=== PATIENT | female | born 1980 | race Caucasian/White ===

== ENCOUNTER 2024-10-17 11:01 | Day surgery (SDC) | payer OTHER ==
[2024-10-17] MEDS ORDERED: hydrALAZINE 20 MG/ML VIAL SLOW IVP PRN (12:24)
[2024-10-17 12:46] LABS: Glucose, Urine (Dipstick) Normal (Negative); Leukocyte Negative (Negative); Protein, Urine (Dipstick) Negative (Neg-Trace); Specific Gravity, Urine 1.010 (1.005-1.030)
[2024-10-17 13:20] LABS: Bacteria/HPF 1+ HPF (None Seen); CAUTI Indications for Culture Pregnancy; RBC/HPF 0-3 HPF (0-3); WBC/HPF 0-3 HPF (0-3)
[2024-10-17 13:22] LABS: Urine Culture Reflex Yes Yes
[2024-10-17 13:47] LABS: #Basophils 0.04 10x3/uL (0.0-0.2); #Eosinophils 0.12 10x3/uL (0.0-0.5); #Monocytes 0.81 10x3/uL (0.0-1.1); #Neutrophils 7.36 10x3/uL (1.5-8.4); %Basophils 0.4 % (0.0-2.0); %Eosinophils 1.1 % (0.0-6.0); %Lymphocytes 21.1 % (18.0-47.0); %Monocytes 7.6 % (0.0-10.0); %Neutrophils 69.0 % (40.0-75.0); Hematocrit 31.5 % (34.9-44.5); Hemoglobin 10.2 g/dL (12.0-15.5); Mean Corpuscular Hemoglobin 29.9 pg (27.0-33.0); Mean Corpuscular Volume 92.4 fL (81.6-98.3); Platelet Count 297 10x3/uL (150-450); Red Blood Cell (RBC) Count 3.41 10x6/uL (3.90-5.03); White Blood Cell (WBC) Count 10.66 10x3/uL (3.5-10.5)
[2024-10-17 14:02] LABS: ALT (SGPT) 19 U/L (Less than 34); AST (SGOT) 16 U/L (11-34); Albumin 3.1 g/dL (3.1-4.5); Alkaline Phosphatase 85 U/L (40-110); Anion Gap 11 mmol/L (10-20); BUN (Urea Nitrogen) 6 mg/dL (7.0-18.7); Bilirubin, Total 0.1 mg/dL (0.3-1.2); Calc. Creatinine Clearance 0 mL/min (70-130); Calcium 8.5 mg/dL (7.8-10.44); Carbon Dioxide 23 mmol/L (22-29); Chloride 106 mmol/L (98-107); Globulin 3.4 g/dL (2.4-3.5); Glucose 75 mg/dL (70-105); Potassium 3.9 mmol/L (3.5-5.1); Sodium 136 mmol/L (136-145)
[2024-10-17] MEDS: Famotidine 20 MG TAB PO SCH (14:39)
== END 2024-10-17 16:00 | disposition home health service (06) ==
LOC: CSHLD/OP 11:01
PROVIDERS: ATTEND Family Medicine
DX: O99.891 Other specified diseases and conditions complicating pregnancy (principal); R10.13 Epigastric pain; O09.523 Supervision of elderly multigravida, third trimester; O09.43 Supervision of pregnancy with grand multiparity, third trimester; O24.419 Gestational diabetes mellitus in pregnancy, unspecified control; O99.333 Smoking (tobacco) complicating pregnancy, third trimester; F17.200 Nicotine dependence, unspecified, uncomplicated; Z3A.28 28 weeks gestation of pregnancy; Z79.899 Other long term (current) drug therapy
CPT/HCPCS: 76705; 76815; 80053; 81001; 85025; 87086; 99284

== ENCOUNTER 2024-12-02 03:23 | Day surgery (SDC) | payer OTHER ==
[2024-12-02 03:41] VITALS: BMI 37.5
[2024-12-02] MEDS ORDERED: hydrALAZINE 20 MG/ML VIAL SLOW IVP PRN (03:52)
== END 2024-12-02 08:45 | disposition home health service (06) ==
LOC: CSHLD/OP 03:23
PROVIDERS: ATTEND Family Medicine
DX: O47.03 False labor before 37 completed weeks of gestation, third trimester (principal); O09.523 Supervision of elderly multigravida, third trimester; O09.43 Supervision of pregnancy with grand multiparity, third trimester; O24.419 Gestational diabetes mellitus in pregnancy, unspecified control; Z3A.35 35 weeks gestation of pregnancy; Z79.899 Other long term (current) drug therapy

== ENCOUNTER 2024-12-26 16:38 | Day surgery (SDC) | payer OTHER | END 2024-12-26 18:52 | disposition home health service (06) | LOC: CSHLD/OP 16:38 | PROVIDERS: ATTEND Family Medicine | DX: Z36.89 Encounter for other specified antenatal screening (principal); O09.523 Supervision of elderly multigravida, third trimester; O09.43 Supervision of pregnancy with grand multiparity, third trimester; O24.419 Gestational diabetes mellitus in pregnancy, unspecified control; O99.333 Smoking (tobacco) complicating pregnancy, third trimester; F17.210 Nicotine dependence, cigarettes, uncomplicated; O99.213 Obesity complicating pregnancy, third trimester; Z3A.38 38 weeks gestation of pregnancy; Z79.899 Other long term (current) drug therapy | CPT/HCPCS: 76819; 99282 ==

== ENCOUNTER 2024-12-29 05:28 | Inpatient (IN) | payer OTHER ==
[2024-12-29 06:19] VITALS: BMI 38.0
[2024-12-29] MEDS ORDERED: Lidocaine 1% (PF) 30 ML VIAL SC PRN (06:55)
[2024-12-29] MEDS ORDERED: Methylergonovine 0.2 MG/ML VIAL IM PRN (06:55)
[2024-12-29] MEDS ORDERED: Diphenoxylate HCl/Atropine Tablet PO PRN (06:55)
[2024-12-29] MEDS ORDERED: Oxytocin 30 units/NS 500 ML 500 ML IV SCH (06:55)
[2024-12-29] MEDS ORDERED: Acetaminophen 500 MG TAB PO PRN (06:55)
[2024-12-29] MEDS ORDERED: Carboprost 250 MCG/ML AMP IM PRN (06:55)
[2024-12-29] MEDS ORDERED: Ondansetron PF 4 MG/2 ML Vial IVP PRN ×3 (06:55→23:15)
[2024-12-29] MEDS ORDERED: HYDROcodone/Acetaminophen 5/325 mg Tablet PO PRN (06:55)
[2024-12-29] MEDS ORDERED: hydrALAZINE 20 MG/ML VIAL SLOW IVP PRN ×2 (06:55→23:15)
[2024-12-29 07:16] LABS: Hematocrit 37.6 % (34.9-44.5); Hemoglobin 12.9 g/dL (12.0-15.5); Mean Corpuscular Hemoglobin 30.6 pg (27.0-33.0); Mean Corpuscular Volume 89.3 fL (81.6-98.3); Platelet Count 251 10x3/uL (150-450); Red Blood Cell (RBC) Count 4.21 10x6/uL (3.90-5.03); White Blood Cell (WBC) Count 9.36 10x3/uL (3.5-10.5)
[2024-12-29 07:49] LABS: Syphilis Antibody Index 0.06 S/CO (<1.00 Non-Reactive)
[2024-12-29 07:50] LABS: Hep B Surf Ag - L&D Non-Reactive S/CO (NonReactive)
[2024-12-29] MEDS ORDERED: diphenhydrAMINE 50 MG/ML VIAL IVP PRN (08:34)
[2024-12-29] MEDS ORDERED: Communication Order-Pharmacy FS SCH (08:45)
[2024-12-29] MEDS: Oxytocin 30 units/NS 500 ML 500 ML IV SCH (14:32)
[2024-12-29] MEDS: fentaNYL 2 mcg/Ropivacaine 0.2% Epidural 100 ML CADD EPIDURAL SCH (18:15)
[2024-12-29] MEDS: Tranexamic Acid 1,000 MG/10 ML VIAL IVP PRN (18:52)
[2024-12-29] MEDS: Ibuprofen 800 MG TAB PO PRN (20:50)
[2024-12-29] MEDS ORDERED: diphenhydrAMINE 25 MG CAP PO PRN (23:15)
[2024-12-29] MEDS ORDERED: Boostrix 0.5 ML (Tdap) VIAL (>/=7 yrs of age) IM ONE (23:15)
[2024-12-29] MEDS ORDERED: Benzocaine-Menthol 82.5 ML CAN TOP PRN (23:15)
[2024-12-29] MEDS ORDERED: Bisacodyl 10 MG SUPP PR PRN (23:15)
[2024-12-29] MEDS ORDERED: Lanolin Ointment 7 GM TUBE TOP PRN (23:15)
[2024-12-29] MEDS ORDERED: Milk Of Magnesia 30 ML UDCUP PO PRN (23:15)
[2024-12-29] MEDS: fentaNYL/Ropivacaine Epidural 100 ML ONE (23:17)
[2024-12-30] MEDS: Acetaminophen 325 MG TAB PO PRN (03:37)
[2024-12-30] MEDS: Ibuprofen 800 MG TAB PO SCH (05:30)
[2024-12-30] MEDS: Ferrous Sulfate 325 MG TAB PO SCH (08:20)
[2024-12-30] MEDS: HYDROcodone/Acetaminophen 5/325 mg Tablet PO PRN (13:49)
[2024-12-30] MEDS ORDERED: Bupivacaine/Epinephrine 0.25% 30 ML VIAL ONE (18:56)
[2024-12-31 12:03] VITALS: BP 133/75; TEMP 98.7
== END 2024-12-31 13:25 | disposition home or self-care (01) | DRG 807 ==
LOC: CSHLD 05:28 → CSHPP 22:30
PROVIDERS: ADMIT Family Medicine; ATTEND Family Medicine
PROC: 10E0XZZ Delivery of Products of Conception, External Approach (ICD-10-PCS; principal; 2024-12-29)
PROC: 0KQM0ZZ Repair Perineum Muscle, Open Approach (ICD-10-PCS; 2024-12-29)
PROC: 10907ZC Drainage of Amniotic Fluid, Therapeutic from Products of Conception, Via Natural or Artificial Opening (ICD-10-PCS; 2024-12-29)
DX: O24.420 Gestational diabetes mellitus in childbirth, diet controlled (principal); Z37.0 Single live birth; Z3A.39 39 weeks gestation of pregnancy; O70.1 Second degree perineal laceration during delivery; O99.334 Smoking (tobacco) complicating childbirth
CPT/HCPCS: 36416; 51702; 85027; 86780; 86850; 86900; 86901; 87340; J2590